=== PATIENT | male | born 1980 | race Caucasian/White ===

== ENCOUNTER 2018-02-26 01:32 | Emergency (ER) | payer SELFPAY ==
[~2018-02-26] VITALS: Ht 175.3 cm; Wt 90.7 kg
[2018-02-26 01:44] VITALS: BP 148/79
[2018-02-26] MEDS ORDERED: LIDOCAINE 1%-EPI 1:100,000 20 ML VIAL ONE (02:07)
== END 2018-02-26 02:37 | disposition home or self-care (01) ==
LOC: ER 01:35
DX: S51.812A Laceration without foreign body of left forearm, initial encounter (principal); I10 Essential (primary) hypertension; Z88.6 Allergy status to analgesic agent; W45.8XXA Other foreign body or object entering through skin, initial encounter; Y93.89 Activity, other specified; Y92.89 Other specified places as the place of occurrence of the external cause; Y99.8 Other external cause status
CPT/HCPCS: 12001; 99283; A4606; A6402; J3490; Z7610